=== PATIENT | male | born 1995 | race Caucasian/White ===

== ENCOUNTER 2023-12-10 16:49 | Emergency (ER) | payer SELFPAY ==
[2023-12-10 17:06] VITALS: BP 123/73; PULSE 82; RESP 16; TEMP 98.4; BMI 29.8
== END 2023-12-10 17:48 | disposition home or self-care (01) ==
LOC: JERFT 16:49
DX: Z48.02 Encounter for removal of sutures (principal)
CPT/HCPCS: 99281-25